=== PATIENT | male | born 1955 | race Caucasian/White ===

== ENCOUNTER → 2019-04-19 09:11 | Outpatient (CLI) | payer BC, SELFPAY ==
--- NOTE | 2019-04-19 09:22 | NVE_ITS ---
Venous Exam Indications: 729.81 Swelling of limb. 729.5 Pain in limb. IMPRESSIONS 1. There is no evidence of significant Reflux. 2. No evidence of deep or superficial vein thrombosis involving the right lower extremity History: Risk factors: Hypertension. Right lower extremity venous duplex evaluation. Doppler flow study including spectral analysis, color and velázquez scale imaging. Location: Vascular laboratory. Patient status: Outpatient. CRITICAL FINDINGS - Reported to: Aisha Campos office - 04/19/2019 - 09:45 am - Neg for DVT Tables: Venous flow and imaging: + +-------+ + Location Overall Flow properties + +-------+ + Right common femoral Patent Normal phasicity; spontaneous; normal augmentation; compressible + +-------+ + Right saphenofemoral junction Patent Compressible + +-------+ + Right profunda femoral Patent Compressible + +-------+ + Right femoral Patent Normal phasicity; spontaneous; normal augmentation; compressible + +-------+ + Right greater saphenous Patent Normal phasicity; spontaneous; normal augmentation; compressible + +-------+ + Right popliteal Patent Normal phasicity; spontaneous; normal augmentation; compressible + +-------+ + Right posterior tibial Patent Compressible + +-------+ + Right peroneal Patent Compressible + +-------+ + Right gastrocnemius Patent Compressible + +-------+ + Right soleal Patent Compressible + +-------+ + (Report amended ) Electronically signed by: Feliciano Barraza [id number]
== END ==
PROVIDERS: PCP Internal Medicine; Visit Provider Internal Medicine
DX: M79.661 Pain in right lower leg (principal); M79.89 Other specified soft tissue disorders
CPT/HCPCS: 93971

== ENCOUNTER → 2019-09-13 07:38 | Outpatient (CLI) | payer BC, SELFPAY ==
--- NOTE | 2019-09-13 07:42 | MR_ITS ---
PROCEDURE: MR LUMBAR SPINE WO CON CLINICAL INDICATION: LOW BACK PAIN Low back pain radiating into the right leg COMPARISON: No exams were available for comparison TECHNIQUE: Standard multiplanar multiecho sequences are performed without contrast. 3-D MIP and myelographic images are also rendered and reviewed FINDINGS: Normal alignment. The spinal cord ends at the L1 level. T11-T12: Mild degenerative disc disease. T12-L1: Minimal facet and ligamentum hypertrophic change on the right L1-L2: Unremarkable. L2-L3: Mild bulging disc along with moderate facet and ligamentum hypertrophy with mild bilateral lateral recess narrowing. L3-L4: Moderate facet ligamentum hypertrophy with mild bilateral lateral recess narrowing slightly greater on the right compared to left. L4-5: Moderate facet ligamentum hypertrophy with mild bilateral lateral recess narrowing and mild bilateral foraminal narrowing. L5-S1: Degenerate disc disease. 2 mm anterolisthesis L5 on S1. There is bulging disc at this level along with facet ligamentum hypertrophy. There does appear to be a pars defect on the right and possibly on the left at L5. There is moderate bilateral foraminal narrowing. 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 Please see above for detailed description at each level. Degenerative disc disease at L5-S1 with 2 mm anterolisthesis L5 on S1. There is bulging disc at this level along with facet ligamentum hypertrophy. There does appear to be a pars defect on the right and possibly on the left at L5. There is moderate bilateral foraminal narrowing No extruded herniated disc or canal stenosis. Dictated by: Feliciano Barraza MD 09/15/2019 04:57 Electronically signed by Feliciano Barraza MD in [place] 09/15/2019 04:57
== END ==
PROVIDERS: PCP Internal Medicine; Visit Provider Internal Medicine
DX: M54.5 Low back pain (principal)
CPT/HCPCS: 72148; 76376

== ENCOUNTER 2019-12-07 09:20 | Outpatient (CLI) | payer BC, SELFPAY ==
[2019-12-07 09:28] VITALS: BMI 35.6
[2019-12-07 09:45] VITALS: BP 136/67; PULSE 59; RESP 18; TEMP 36.4; O2SAT 96
[2019-12-07 09:51] LABS: Basophils % 0.3 % (0.1-2.0); Eosinophils % 0.2 % (0.1-12.0); Hematocrit 39.1 % (42.0-52.0); Hemoglobin 12.6 g/dL (14.1-18.0); Lymphocytes # 2.4 K/mm3 (0.7-4.5); Lymphocytes % 16.6 % (10-50); Mean Corpuscular HGB Conc 32.2 g/dL (31.8-35.4); Mean Corpuscular Hemoglobin 29.4 pg (27.0-31.2); Mean Corpuscular Volume 91.3 fl (80-94); Mean Platelet Volume 8.3 fl (7.4-10.4); Monocytes # 0.6 K/mm3 (0.1-1.0); Monocytes % 4.3 % (1.7-9.3); Neutrophils # 11.4 K/mm3 (1.8-7.8); Neutrophils % 78.6 % (37.0-80.0); Platelet Count 378 K/mm3 (142-424); Red Blood Count 4.28 M/mm3 (4.60-6.20); Red Cell Distribution Width 12.9 % (11.5-17.5); White Blood Count 14.5 K/mm3 (4.8-10.8)
[2019-12-07 10:00] LABS: Alanine Aminotransferase 44 U/L (12-78); Albumin Level 3.5 gm/dL (3.4-5.0); Albumin/Globulin Ratio 0.9 (1.1-1.8); Alkaline Phosphatase 61 U/L (46-116); Anion Gap 15.2 mEq/L (5-15); Aspartate Amino Transferase 30 U/L (15-37); Bilirubin,Total 0.7 mg/dL (0.2-1.0); Blood Urea Nitrogen 39 mg/dL (7-18); Calcium 9.1 mg/dL (8.5-10.1); Carbon Dioxide 26 mmol/L (21.0-32.0); Chloride 97 mmol/L (98-107); Creatinine Clearance Estimated 64 mL/min (50-200); Creatinine,Serum 1.68 mg/dL (0.70-1.30); Estimated Glomerular Filt Rate 41 ml/min (>60); GFR (African American) 50 ML/MIN (>60); Globulin 3.9 gm/dl (1.3-3.2); Glucose 144 mg/dL (74-106); Potassium 3.2 mmoL/L (3.5-5.1); Sodium 135 mmol/L (136-145); Total Protein,Serum 7.4 gm/dL (6.4-8.2)
[2019-12-07 10:15] VITALS: BP 125/73; PULSE 59; RESP 18
[2019-12-07 11:25] VITALS: BP 129/67; PULSE 64; RESP 18
[2019-12-07 12:35] VITALS: BP 138/66; PULSE 75; RESP 18
[2019-12-07 13:45] VITALS: BP 139/58; PULSE 78; RESP 20
== END 2019-12-07 13:50 | disposition home or self-care (01) ==
LOC: INF 09:22
PROVIDERS: PCP Internal Medicine; Visit Provider Internal Medicine
DX: K52.9 Noninfective gastroenteritis and colitis, unspecified (principal); E86.0 Dehydration
CPT/HCPCS: 80053; 85025; 96360; 96361

== ENCOUNTER → 2020-05-05 09:16 | Outpatient (CLI) | payer BC, SELFPAY ==
[2020-05-05 10:37] LABS: Hemoglobin A1C 6.8 % (4.0-6.0)
[2020-05-05 10:44] LABS: Coronavirus 19 IgG Antibody Negative (Negative)
[2020-05-05 10:45] LABS: Coronavirus 19 IgM Antibody Negative (Negative)
[2020-05-05 11:07] LABS: Alanine Aminotransferase 20 U/L (12-78); Albumin Level 4.3 g/dl (3.5-5.0); Albumin/Globulin Ratio 1.8 (1.1-1.8); Alkaline Phosphatase 46 U/L (38-126); Anion Gap 12.8 mEq/L (5-15); Aspartate Amino Transferase 21 U/L (17-59); Bilirubin,Total 0.9 mg/dl (0.2-1.3); Blood Urea Nitrogen 22 mg/dl (9-20); Calcium 9.2 mg/dl (8.4-10.2); Carbon Dioxide 32 mmol/L (22.0-30.0); Chloride 99 mmol/L (98-107); Chol/HDL Ratio 2.5 (1-3.5); Cholesterol 121 mg/dl (140-200); Estimated Glomerular Filt Rate 67 ml/min (>60); GFR (African American) 81 ML/MIN (>60); Globulin 2.4 g/dL (1.3-3.2); Glucose 113 mg/dl (74-100); HDL Cholesterol 48 mg/dl (40-60); Potassium 3.8 mmoL/L (3.5-5.1); Sodium 140 mmol/L (136-145); Total Protein,Serum 6.7 g/dl (6.3-8.2); Triglycerides 65 mg/dl (30-150); VLDL Cholesterol 13 mg/dL (0-40)
[2020-05-05 11:18] LABS: Direct LDL Cholesterol 87.52 mg/dL (100-129)
[2020-05-05 11:36] LABS: Prostate Specific Ag, Diagnost 1.32 ng/ml (0.0-4.0); Thyroid Stimulating Hormone 2.44 uIU/mL (0.465-4.68)
== END ==
PROVIDERS: Visit Provider Internal Medicine
DX: Z03.818 Encounter for observation for suspected exposure to other biological agents ruled out (principal); I10 Essential (primary) hypertension; E78.5 Hyperlipidemia, unspecified; E11.42 Type 2 diabetes mellitus with diabetic polyneuropathy; Z79.84 Long term (current) use of oral hypoglycemic drugs
CPT/HCPCS: 36415; 80053; 80061; 83036; 84153; 84443; 86328

== ENCOUNTER 2020-08-22 09:00 | Outpatient (RCR) | payer BC, SELFPAY | END 2020-08-22 10:03 | disposition home or self-care (01) | LOC: PT 09:00 | PROVIDERS: PCP Internal Medicine; Visit Provider Orthopaedic Surgery | DX: M25.561 Pain in right knee (principal) | CPT/HCPCS: 97010; 97014; 97016; 97110; 97140; 97163; 97164; G0283 ==

== ENCOUNTER → 2021-06-04 13:42 | Outpatient (CLI) | payer BC, SELFPAY | PROVIDERS: Visit Provider Internal Medicine | DX: H00.014 Hordeolum externum left upper eyelid (principal) | CPT/HCPCS: 87070; 87077; 87186 ==

== ENCOUNTER → 2021-11-19 14:55 | Outpatient (CLI) | payer BC, SELFPAY ==
[2021-11-19 15:30] LABS: Microalbumin < 6.000 mg/L (0-16.7)
[2021-11-19 15:38] LABS: Hemoglobin A1C 6.8 % (4.0-6.0)
[2021-11-19 15:52] LABS: Chloride 102 mmol/L (98-107); Potassium 5.2 mmoL/L (3.5-5.1); Sodium 138 mmol/L (136-145)
[2021-11-19 15:55] LABS: Alanine Aminotransferase 27 U/L (12-78); Albumin Level 4.2 g/dl (3.5-5.0); Albumin/Globulin Ratio 1.9 (1.1-1.8); Alkaline Phosphatase 42 U/L (38-126); Anion Gap 14.2 mEq/L (5-15); Aspartate Amino Transferase 28 U/L (17-59); Bilirubin,Total 0.4 mg/dl (0.2-1.3); Blood Urea Nitrogen 21 mg/dl (9-20); Carbon Dioxide 27 mmol/L (22.0-30.0); Cholesterol 124 mg/dl (140-200); Estimated Glomerular Filt Rate 67 ml/min (>60); GFR (African American) 81 ML/MIN (>60); Globulin 2.2 g/dL (1.3-3.2); Total Protein,Serum 6.4 g/dl (6.3-8.2); Triglycerides 110 mg/dl (30-150); VLDL Cholesterol 22 mg/dL (0-40)
[2021-11-19 15:56] LABS: Chol/HDL Ratio 3.4 (1-3.5); Glucose 118 mg/dl (74-100); HDL Cholesterol 37 mg/dl (40-60)
[2021-11-19 16:07] LABS: Direct LDL Cholesterol 74.77 mg/dL (100-129)
[2021-11-19 16:46] LABS: Prostate Specific Ag Screen 0.9 ng/ml (0.0-4.0)
== END ==
PROVIDERS: Visit Provider Internal Medicine
DX: E11.9 Type 2 diabetes mellitus without complications (principal); E78.5 Hyperlipidemia, unspecified; I10 Essential (primary) hypertension; N40.1 Benign prostatic hyperplasia with lower urinary tract symptoms; Z12.5 Encounter for screening for malignant neoplasm of prostate; Z79.84 Long term (current) use of oral hypoglycemic drugs
CPT/HCPCS: 80053; 80061; 82043; 83036; G0103

== ENCOUNTER → 2021-12-31 09:41 | Outpatient (POV) | payer BC, SELFPAY | PROVIDERS: Visit Provider Dermatology | DX: Z00.00 Encounter for general adult medical examination without abnormal findings (principal) ==

== ENCOUNTER 2022-01-23 09:20 | Emergency (ER) | payer BC, MEDICARE, SELFPAY ==
[2022-01-23 09:40] VITALS: BP 161/82; PULSE 69; RESP 19; TEMP 37; O2SAT 97; BMI 38.7
--- NOTE | 2022-01-23 09:47 | HMH.EDUTC ---
[facility] [place] Clinical Impression: Impacted ear wax Qualifiers: Laterality: bilateral Qualified Code(s): H61.23 - Impacted cerumen, bilateral Disposition: Home, Self-Care Condition on Discharge: Good Instructions: DI for Cerumen Impaction Additional Instructions: Follow up with Family Doctor if needed Return if needed Straight to ER if any life threatening symptoms Referrals: Saw Campos [Primary Care Provider] - As needed Time of Disposition: 10:12 Medical Decision Making - Jean Inquiry Pt receiving controlled substance: No Jean was queried for this patient: No Vital Signs: 01/23/22 09:40 Temperature 98.6 F Temperature Source Oral Pulse Rate [Right Radial] 69 Respiratory Rate 19 Blood Pressure [Right Arm] 161/82 H Blood Pressure Mean [Right Arm] 108 Blood Pressure Source [Right Arm] Automatic Cuff Blood Pressure Position [Right Arm] Sitting 02 Sat by Pulse Oximetry 97 Oxygen Delivery Method Room Air [facility] [place] - General Stated complaint: trouble hearing in lt ear Time Seen by Provider: 01/23/22 09:48 Mode of Arrival: Ambulatory Source of Information: Patient Limitations: No Limitations Description of Symptoms (Recalled from Triage Doc. by RN): Pt c/o fullness in his left ear x2 days HEENT Symptoms (Recalled from RN notes): Yes (Ear fullness) Resp Symptoms (Recalled from RN notes): No Skin Symptoms (Recalled from RN notes): No MS Symptoms (Recalled from RN notes): No Functional Status (Recalled from RN notes): n/a - History of Present Illness Provider Complaint: Patient states that he has been having trouble hearing out of his left ear and he wears ear plugs at work and sometimes his ears gets stopped up with dry skin and wax State that he noticed he couldnt hear out of his left ear and his right ear is getting bad too so he came in to get it checked and cleaned out if needed - Related Data Home Medications Medication Instructions Recorded Confirmed Amlodipine Besylate [Amlodipine 5 mg PO DAILY 12/07/19 01/14/20 10mg Tab] Aspirin [Aspir 81] 81 mg PO DAILY 12/07/19 01/14/20 Benazepril HCl 80 mg PO DAILY 12/07/19 01/14/20 Folic Acid 0.8 mg PO DAILY 12/07/19 01/14/20 Metformin HCl [Metformin HCl ER] 1,000 mg PO BID 12/07/19 01/14/20 Multivit-Min/FA/Lycopen/Lutein 1 each PO DAILY 12/07/19 01/14/20 [Centrum Silver Tablet] Pyridoxine HCl (Vitamin B6) 100 mg PO BID 12/07/19 01/14/20 [Vitamin B-6] Spironolactone [Spironolactone 25 mg PO DAILY 12/07/19 01/14/20 25mg Tablet] atenoloL [Atenolol 50mg Tab] 50 mg PO BID 12/07/19 01/14/20 hydroCHLOROthiazide [HCTZ 25mg 25 mg PO DAILY 12/07/19 01/14/20 tab] Allergies Allergy/AdvReac Type Severity Reaction Status Date / Time levofloxacin [From Levaquin] Allergy Unknown Unknown Verified 01/14/20 16:54 allergy reaction - Worker's Comp Is this a Worker's Comp case?: No [facility] History - Hepatitis A Screen Drug use history?: No High risk sexual behaviors?: No History of sexually transmitted infection?: No Currently employed?: No Childcare worker?: No Do you have indoor plumbing?: Yes Do you have electricity?: Yes Attestation statement:: This patient has been screened for Hepatitis A risk factors. I have reviewed the patient's past medical history: Yes Medical History: Reports:: Diabetes Mellitus Type 2, Heart Murmur, Hypertension Denies:: Diabetes Mellitus Type 1 Laterality Cases: Left: Carpal Tunnel Release Other Surgeries: Yes: Cancer Surgery (BASAL CELL CARCINOMA) - Social History Smoking Status: Never smoker Alcohol Intake: never Alcohol Intake Frequency:: holidays/special occasions only Occupational Status: employed Housing: house Household Members: spouse Family Hx:: Cancer, Hypertension ROS Obtained: Yes All systems reviewed & no additional complaints, Yes Systems reviewed as appropriate & no additional complaints - Constitutional Constitutional: Reports system reviewed and no additiona
[2022-01-23 10:20] VITALS: BP 161/82; PULSE 69; RESP 19; TEMP 37; O2SAT 97
== END 2022-01-23 10:24 | disposition home or self-care (01) ==
PROVIDERS: Emergency Provider Nurse Practitioner; PCP Internal Medicine
DX: H92.02 Otalgia, left ear (principal); H61.23 Impacted cerumen, bilateral; E11.9 Type 2 diabetes mellitus without complications; I10 Essential (primary) hypertension
CPT/HCPCS: 99202; G0463

== ENCOUNTER → 2022-02-11 09:19 | Outpatient (POV) | payer BC, MEDICARE, SELFPAY | PROVIDERS: Visit Provider Dermatology | DX: Z00.00 Encounter for general adult medical examination without abnormal findings (principal) ==

== ENCOUNTER → 2022-06-17 13:10 | Outpatient (CLI) | payer BC, MEDICARE, SELFPAY ==
[2022-06-17 17:37] LABS: Basophils # 0.1 K/mm3 (0-0.2); Basophils % 0.6 % (0.1-2.0); Eosinophils # 0.2 K/mm3 (0.0-0.4); Eosinophils % 2.5 % (0.1-12.0); Hemoglobin 12.4 g/dL (14.1-18.0); Lymphocytes # 3.2 K/mm3 (0.7-4.5); Lymphocytes % 41.3 % (10-50); Mean Corpuscular HGB Conc 31.9 g/dL (31.8-35.4); Mean Corpuscular Hemoglobin 30.2 pg (27.0-31.2); Mean Corpuscular Volume 94.7 fl (80-94); Mean Platelet Volume 8.6 fl (7.4-10.4); Monocytes # 0.4 K/mm3 (0.1-1.0); Monocytes % 4.8 % (1.7-9.3); Neutrophils # 3.9 K/mm3 (1.8-7.8); Neutrophils % 50.8 % (37.0-80.0); Platelet Count 309 K/mm3 (142-424); Red Blood Count 4.12 M/mm3 (4.60-6.20); White Blood Count 7.7 K/mm3 (4.8-10.8)
[2022-06-17 18:19] LABS: Alanine Aminotransferase 36 U/L (12-78); Albumin/Globulin Ratio 1.7 (1.1-1.8); Alkaline Phosphatase 60 U/L (38-126); Anion Gap 13.9 mEq/L (5-15); Aspartate Amino Transferase 33 U/L (17-59); Bilirubin,Total 0.2 mg/dl (0.2-1.3); Blood Urea Nitrogen 27 mg/dl (9-20); Calcium 8.6 mg/dl (8.4-10.2); Carbon Dioxide 24 mmol/L (22.0-30.0); Chloride 105 mmol/L (98-107); Cholesterol 96 mg/dl (140-200); Estimated Glomerular Filt Rate 60 ml/min (>60); GFR (African American) 73 ML/MIN (>60); Globulin 2.3 g/dL (1.3-3.2); Glucose 124 mg/dl (74-100); HDL Cholesterol 32 mg/dl (40-60); Potassium 4.9 mmoL/L (3.5-5.1); Sodium 138 mmol/L (136-145); Total Protein,Serum 6.3 g/dl (6.3-8.2); Triglycerides 143 mg/dl (30-150); VLDL Cholesterol 29 mg/dL (0-40)
[2022-06-17 18:30] LABS: Direct LDL Cholesterol 46.38 mg/dL (100-129)
[2022-06-18 09:23] LABS: Hemoglobin A1C 6.6 % (4.0-6.0)
== END ==
PROVIDERS: PCP Internal Medicine; Visit Provider Internal Medicine
DX: E11.42 Type 2 diabetes mellitus with diabetic polyneuropathy (principal); E78.5 Hyperlipidemia, unspecified; I10 Essential (primary) hypertension; K75.81 Nonalcoholic steatohepatitis (NASH); Z79.84 Long term (current) use of oral hypoglycemic drugs
CPT/HCPCS: 80053; 80061; 83036; 85025

== ENCOUNTER → 2022-07-01 09:50 | Outpatient (POV) | payer BC, MEDICARE, SELFPAY | PROVIDERS: Visit Provider Dermatology | DX: Z00.00 Encounter for general adult medical examination without abnormal findings (principal) ==

== ENCOUNTER → 2022-12-19 11:56 | Outpatient (CLI) | payer MEDICARE, SELFPAY ==
[2022-12-19 13:45] LABS: Basophils # 0.1 K/mm3 (0-0.2); Basophils % 0.7 % (0.1-2.0); Eosinophils # 0.2 K/mm3 (0.0-0.4); Eosinophils % 1.7 % (0.1-12.0); Hematocrit 38.7 % (42.0-52.0); Hemoglobin 12.4 g/dL (14.1-18.0); Lymphocytes # 4.1 K/mm3 (0.7-4.5); Lymphocytes % 47.7 % (10-50); Mean Corpuscular HGB Conc 32.1 g/dL (31.8-35.4); Mean Corpuscular Hemoglobin 30.8 pg (27.0-31.2); Mean Platelet Volume 9.1 fl (7.4-10.4); Monocytes # 0.4 K/mm3 (0.1-1.0); Monocytes % 4.7 % (1.7-9.3); Neutrophils # 3.9 K/mm3 (1.8-7.8); Neutrophils % 45.1 % (37.0-80.0); Platelet Count 335 K/mm3 (142-424); Red Blood Count 4.03 M/mm3 (4.60-6.20); Red Cell Distribution Width 13.4 % (11.5-17.5); White Blood Count 8.6 K/mm3 (4.8-10.8)
[2022-12-19 15:21] LABS: Alanine Aminotransferase 59 U/L (12-78); Albumin Level 4.3 g/dl (3.5-5.0); Alkaline Phosphatase 53 U/L (38-126); Anion Gap 14.2 mEq/L (5-15); Aspartate Amino Transferase 54 U/L (17-59); Bilirubin,Total 0.7 mg/dl (0.2-1.3); Blood Urea Nitrogen 23 mg/dl (9-20); Calcium 8.9 mg/dl (8.4-10.2); Carbon Dioxide 26 mmol/L (22.0-30.0); Chloride 105 mmol/L (98-107); Chol/HDL Ratio 3.5 (1-3.5); Cholesterol 90 mg/dl (140-200); Estimated Glomerular Filt Rate 60 ml/min (>60); GFR (African American) 73 ML/MIN (>60); Globulin 2.2 g/dL (1.3-3.2); Glucose 139 mg/dl (74-100); HDL Cholesterol 26 mg/dl (40-60); Potassium 5.2 mmoL/L (3.5-5.1); Sodium 140 mmol/L (136-145); Total Protein,Serum 6.5 g/dl (6.3-8.2); Triglycerides 110 mg/dl (30-150); VLDL Cholesterol 22 mg/dL (0-40)
[2022-12-19 15:32] LABS: Direct LDL Cholesterol 46.63 mg/dL (100-129)
[2022-12-19 15:53] LABS: Prostate Specific Ag Screen 1.1 ng/ml (0.0-4.0)
[2022-12-19 16:54] LABS: Hemoglobin A1C 7.8 % (4.0-6.0)
== END ==
PROVIDERS: PCP Internal Medicine; Visit Provider Internal Medicine
DX: E11.9 Type 2 diabetes mellitus without complications (principal); E78.5 Hyperlipidemia, unspecified; I87.2 Venous insufficiency (chronic) (peripheral); K75.81 Nonalcoholic steatohepatitis (NASH); N40.1 Benign prostatic hyperplasia with lower urinary tract symptoms; Z79.84 Long term (current) use of oral hypoglycemic drugs; Z12.5 Encounter for screening for malignant neoplasm of prostate
CPT/HCPCS: 80053; 80061; 83036; 85025; G0103

== ENCOUNTER → 2022-12-22 12:22 | Outpatient (CLI) | payer MEDICARE, SELFPAY ==
[2022-12-22 13:15] LABS: Creatinine,Urine Random 141 mg/dL (Not Estab.)
[2022-12-22 13:22] LABS: Microalbumin < 6.000 mg/L (0-16.7)
[2022-12-22 16:33] LABS: Iron 77 ug/dL (49-181)
[2022-12-22 16:42] LABS: Total Iron Binding Capacity 336 ug/dL (261-462)
[2022-12-22 17:25] LABS: Vitamin B12 691 pg/mL (239-931)
== END ==
PROVIDERS: PCP Internal Medicine; Visit Provider Internal Medicine
DX: E11.9 Type 2 diabetes mellitus without complications (principal); Z79.84 Long term (current) use of oral hypoglycemic drugs
CPT/HCPCS: 82043; 82570; 82607; 83540; 83550

== ENCOUNTER → 2023-06-29 14:21 | Outpatient (CLI) | payer MEDICARE, SELFPAY ==
[2023-06-29 18:27] LABS: Basophils # 0.1 K/mm3 (0-0.2); Basophils % 0.5 % (0.1-2.0); Eosinophils # 0.2 K/mm3 (0.0-0.4); Eosinophils % 2.1 % (0.1-12.0); Hematocrit 43.7 % (42.0-52.0); Hemoglobin 13.3 g/dL (14.1-18.0); Lymphocytes # 4.2 K/mm3 (0.7-4.5); Lymphocytes % 39.6 % (10-50); Mean Corpuscular HGB Conc 30.4 g/dL (31.8-35.4); Mean Corpuscular Hemoglobin 29.5 pg (27.0-31.2); Mean Corpuscular Volume 97.2 fl (80-94); Mean Platelet Volume 9.1 fl (7.4-10.4); Monocytes # 0.5 K/mm3 (0.1-1.0); Monocytes % 4.7 % (1.7-9.3); Neutrophils # 5.7 K/mm3 (1.8-7.8); Neutrophils % 53.1 % (37.0-80.0); Platelet Count 337 K/mm3 (142-424); Red Blood Count 4.49 M/mm3 (4.60-6.20); Red Cell Distribution Width 13.7 % (11.5-17.5); Reticulocyte % (Auto) 1.8 % (0.9-3.2); White Blood Count 10.7 K/mm3 (4.8-10.8)
[2023-06-29 18:41] LABS: Alanine Aminotransferase 47 U/L (12-78); Albumin Level 4.4 g/dl (3.5-5.0); Albumin/Globulin Ratio 1.8 (1.1-1.8); Alkaline Phosphatase 72 U/L (38-126); Anion Gap 16.2 mEq/L (5-15); Aspartate Amino Transferase 35 U/L (17-59); Bilirubin,Total 0.7 mg/dl (0.2-1.3); Blood Urea Nitrogen 27 mg/dl (9-20); Calcium 9.2 mg/dl (8.4-10.2); Carbon Dioxide 27 mmol/L (22.0-30.0); Chloride 101 mmol/L (98-107); Chol/HDL Ratio 4.6 (1-3.5); Cholesterol 105 mg/dl (140-200); Estimated Glomerular Filt Rate 46 ml/min (>60); GFR (African American) 56 ML/MIN (>60); Globulin 2.5 g/dL (1.3-3.2); Glucose 133 mg/dl (74-100); HDL Cholesterol 23 mg/dl (40-60); Potassium 5.2 mmoL/L (3.5-5.1); Sodium 139 mmol/L (136-145); Total Protein,Serum 6.9 g/dl (6.3-8.2); Triglycerides 137 mg/dl (30-150); VLDL Cholesterol 27 mg/dL (0-40)
[2023-06-29 18:50] LABS: Hemoglobin A1C 7.6 % (4.0-6.0)
[2023-06-29 18:52] LABS: Direct LDL Cholesterol 58.64 mg/dL (100-129)
== END ==
PROVIDERS: PCP Internal Medicine; Visit Provider Internal Medicine
DX: E11.42 Type 2 diabetes mellitus with diabetic polyneuropathy (principal); I10 Essential (primary) hypertension; I87.2 Venous insufficiency (chronic) (peripheral); D64.9 Anemia, unspecified; K75.81 Nonalcoholic steatohepatitis (NASH); Z79.84 Long term (current) use of oral hypoglycemic drugs
CPT/HCPCS: 80053; 80061; 83036; 85025; 85044

== ENCOUNTER 2024-02-08 13:21 | Outpatient (CLI) | payer MEDICARE, SELFPAY ==
[2024-02-08 15:41] LABS: Alanine Aminotransferase 47 U/L (12-78); Albumin Level 4.3 g/dl (3.5-5.0); Alkaline Phosphatase 67 U/L (38-126); Anion Gap 15.3 mEq/L (5-15); Aspartate Amino Transferase 37 U/L (17-59); Bilirubin,Total 0.8 mg/dl (0.2-1.3); Blood Urea Nitrogen 23 mg/dl (9-20); Calcium 9.1 mg/dl (8.4-10.2); Carbon Dioxide 23 mmol/L (22.0-30.0); Chloride 104 mmol/L (98-107); Chol/HDL Ratio 4.5 (1-3.5); Cholesterol 98 mg/dl (140-200); Estimated Glomerular Filt Rate 50 ml/min (>60); GFR (African American) 61 ML/MIN (>60); Globulin 2.1 g/dL (1.3-3.2); Glucose 146 mg/dl (74-100); HDL Cholesterol 22 mg/dl (40-60); Potassium 5.3 mmoL/L (3.5-5.1); Sodium 137 mmol/L (136-145); Total Protein,Serum 6.4 g/dl (6.3-8.2); Triglycerides 160 mg/dl (30-150); VLDL Cholesterol 32 mg/dL (0-40)
[2024-02-08 15:52] LABS: Direct LDL Cholesterol 58.63 mg/dL (100-129)
[2024-02-08 16:39] LABS: Hemoglobin A1C 8.7 % (4.0-6.0)
[2024-02-08 17:19] LABS: Creatinine,Urine Random 93 mg/dL (Not Estab.); Microalbumin < 6.000 mg/L (0-16.7)
== END 2024-02-08 23:59 ==
LOC: LAB.DROPOF 13:22
PROVIDERS: PCP Internal Medicine; Visit Provider Internal Medicine
DX: E11.42 Type 2 diabetes mellitus with diabetic polyneuropathy (principal); I10 Essential (primary) hypertension; Z12.5 Encounter for screening for malignant neoplasm of prostate; E78.5 Hyperlipidemia, unspecified; K75.81 Nonalcoholic steatohepatitis (NASH); I87.2 Venous insufficiency (chronic) (peripheral)
CPT/HCPCS: 80053; 80061; 82043; 82570; 83036; G0103

== ENCOUNTER 2024-07-12 14:51 | Outpatient (CLI) | payer MEDICARE, SELFPAY ==
[2024-07-12 13:24] LABS: Basophils # 0.1 K/mm3 (0-0.2); Basophils % 0.6 % (0.1-2.0); Eosinophils # 0.2 K/mm3 (0.0-0.4); Eosinophils % 1.7 % (0.1-12.0); Hematocrit 43.7 % (42.0-52.0); Hemoglobin 13.6 g/dL (14.1-18.0); Lymphocytes # 3.4 K/mm3 (0.7-4.5); Lymphocytes % 38.8 % (10-50); Mean Corpuscular HGB Conc 31.1 g/dL (31.8-35.4); Mean Corpuscular Hemoglobin 30.5 pg (27.0-31.2); Mean Corpuscular Volume 97.9 fl (80-94); Mean Platelet Volume 8.6 fl (7.4-10.4); Monocytes # 0.4 K/mm3 (0.1-1.0); Neutrophils # 4.7 K/mm3 (1.8-7.8); Neutrophils % 53.9 % (37.0-80.0); Platelet Count 323 K/mm3 (142-424); Red Blood Count 4.46 M/mm3 (4.60-6.20); Red Cell Distribution Width 14.2 % (11.5-17.5); White Blood Count 8.8 K/mm3 (4.8-10.8)
[2024-07-12 13:48] LABS: Hemoglobin A1C 7.8 % (4.0-6.0)
[2024-07-12 13:56] LABS: Alanine Aminotransferase 48 U/L (12-78); Albumin Level 4.2 g/dl (3.5-5.0); Albumin/Globulin Ratio 1.7 (1.1-1.8); Alkaline Phosphatase 62 U/L (38-126); Anion Gap 13.1 mEq/L (5-15); Aspartate Amino Transferase 38 U/L (17-59); Bilirubin,Total 0.7 mg/dl (0.2-1.3); Blood Urea Nitrogen 25 mg/dl (9-20); Calcium 9.2 mg/dl (8.4-10.2); Carbon Dioxide 25 mmol/L (22.0-30.0); Chloride 104 mmol/L (98-107); Chol/HDL Ratio 3.6 (1-3.5); Cholesterol 111 mg/dl (140-200); Estimated Glomerular Filt Rate 55 ml/min (>60); GFR (African American) 66 ML/MIN (>60); Globulin 2.5 g/dL (1.3-3.2); Glucose 147 mg/dl (74-100); HDL Cholesterol 31 mg/dl (40-60); Potassium 5.1 mmoL/L (3.5-5.1); Sodium 137 mmol/L (136-145); Total Protein,Serum 6.7 g/dl (6.3-8.2); Triglycerides 200 mg/dl (30-150); VLDL Cholesterol 40 mg/dL (0-40)
[2024-07-12 14:07] LABS: Direct LDL Cholesterol 51.15 mg/dL (100-129)
== END 2024-07-12 23:59 | disposition home or self-care (01) ==
LOC: LAB.DROPOF 14:52
PROVIDERS: PCP Internal Medicine; Visit Provider Internal Medicine
DX: E11.42 Type 2 diabetes mellitus with diabetic polyneuropathy (principal); I10 Essential (primary) hypertension; E78.5 Hyperlipidemia, unspecified; Z79.84 Long term (current) use of oral hypoglycemic drugs
CPT/HCPCS: 80053; 80061; 83036; 85025

== ENCOUNTER 2025-07-27 09:00 | Outpatient (CLI) | payer MEDICARE, OTHER, SELFPAY ==
--- OUTSIDE RECORDS SUMMARY | 2021-01-05 04:00 | XMS_ITS | Continuity of Care Document ---
Author Name [facility] Organization [facility] Care Team Providers Care Design Technician Name Role Phone [facility] Unavailable Unavailable Immunizations Combined list of available immunizations from the Department of Defense and Veterans Affairs facilities. Immunization Series Date Given Administered By Site Reaction Lot Number [id number] Code Drug Marketing Clerk Status Comments Source COVID-19 (PFIZER), MRNA, LNP-S, PF, 30 MCG/0.3 ML DOSE 2 2020 208 complet ed PFR; [id number]; 1 [place] [facility] [place] COVID-19 (PFIZER), MRNA, LNP-S, PF, 30 MCG/0.3 ML DOSE 1 2020 208 complet ed PFR; [id number]; 1 [place] [facility] [place]
[2025-07-27 14:07] LABS: Hematocrit 43.8 % (42.0-52.0); Hemoglobin 13.9 g/dL (14.1-18.0); Immature Granulocytes % 0.3 %; Mean Corpuscular HGB Conc 31.7 g/dL (31.8-35.4); Mean Corpuscular Hemoglobin 29.9 pg (27.0-31.2); Mean Corpuscular Volume 94.2 fl (80-94); Nucleated Red Blood Cells % 0 %; Platelet Count 282 K/mm3 (142-424); Red Blood Count 4.65 M/mm3 (4.60-6.20); Red Cell Distribution Width-SD 45.6 fL; White Blood Count 9.0 K/mm3 (4.8-10.8)
[2025-07-27 14:30] LABS: Albumin Level 4.7 g/dl (3.5-5.0); Chloride 102 mmol/L (98-107)
[2025-07-27 14:31] LABS: Potassium 4.9 mmoL/L (3.5-5.1); Sodium 140 mmol/L (136-145)
[2025-07-27 14:33] LABS: Alanine Aminotransferase 47 U/L (12-78); Albumin/Globulin Ratio 2.1 (1.1-1.8); Alkaline Phosphatase 63 U/L (38-126); Anion Gap 17.9 mEq/L (5-15); Aspartate Amino Transferase 52 U/L (17-59); Bilirubin,Total 1.1 mg/dl (0.2-1.3); Blood Urea Nitrogen 26 mg/dl (9-20); Carbon Dioxide 25 mmol/L (22.0-30.0); Creatinine,Serum 1.40 mg/dl (0.66-1.25); Estimated Glomerular Filt Rate 50 ml/min (>60); GFR (African American) 60 ML/MIN (>60); Globulin 2.2 g/dL (1.3-3.2); Total Protein,Serum 6.9 g/dl (6.3-8.2)
[2025-07-27 14:34] LABS: Calcium 9.3 mg/dl (8.4-10.2); Cholesterol 99 mg/dl (140-200); Glucose 145 mg/dl (74-100); HDL Cholesterol 27 mg/dl (40-60); Triglycerides 197 mg/dl (30-150)
[2025-07-27 18:49] LABS: Hemoglobin A1C 8.2 % (4.0-6.0)
--- OUTSIDE RECORDS SUMMARY | 2025-07-28 12:41 | XMS_ITS | Clinical Summary ---
[facility] Address [address] [place] [address] Care Team Providers Care Inventory Checker Name Role Phone Saw Campos MD Primary Care Provider [phone] Social History Tobacco Use Types Packs/Day Years Used Date Smoking Tobacco: Never Assessed Abuse Screen Answer Date Recorded Unsafe at Home or Work/School Not on file Feels Threatened by Someone? Not on file 10/2023 Does Anyone Keep You from Co ntacting Others or Doint Things Outside the Home? Not on file 09/10/2023 Physical Sign of Abuse Present Not on file 1 Housing Stability Answer Date Recorded Current Living Arrangements Not on file 08/30 Potentially Unsafe Housing Conditions Not on pineda e 09/10/2023 Family and Community Support Answer Gurjit e Recorded Help with Day-to-Day Activities Not on file 09/10/2023 Lonely or Isolated Not on file 09/10/2023 Employment Answer Date Recorded Do you want help finding or keeping work or a sebastian b? Not on file 09/10/2023 Disabilities Answer Date Recorded Concentrating, Remembering, or Making Decisions Difficulty Not on file 09/10/2023 Doing Errands Independently Difficulty Not on fi le 09/10/2023 Education Answer Date Recorded Help with school or training? Not on file Preferred Language Not on file 09/10/2023 Sex and Gender Information Value Date Recorded Sex Assigned at Not on file Legal Sex Male 9:32 AM EST Gender Identity Not on file Sexual Orientation Not on file Plan of Treatment Health Maintenance Due Date Last Done Comments TDAP/TD VACCINES (1 - Tdap) 1972 COLOGUARD 1998 COLON CANCER SCREENING 5 YEAR SIGMOIDOSCOPY 1998 COLONOSCOPY 1998 COL[address] CANCER SCREENING 1998 CT COLONOGRAPHY 1998 FECAL OCCULT BLOOD TEST 1998 FIT Testing (1 year) 1998 Pneumococcal Vaccine 50+ (1 of 1 - PCV) 2003 ZOSTER VACCINE (1 of 2) 2003 AAA SCREEN ONCE 2018 ANNUAL PHYSICAL 01/03/2019 HEPATITIS C SCREENING 01/03/2019 PT PLAN OF CARE 01/03/2019 COVID-19 Vaccine (2023- season) 2024 INFLUENZA VACCINE 08/30/2025 Insurance [facility] PPO Care Teams Inventory Checker Relationship Specialty Start Date End Date Saw Campos MD [address] [facility] [address] [place] [address] PCP - General Internal Medicine 01/03/19
== END 2025-07-27 23:59 | disposition home or self-care (01) ==
LOC: LAB.DROPOF 07-28 12:40
PROVIDERS: PCP Internal Medicine; Visit Provider Internal Medicine
DX: Z12.5 Encounter for screening for malignant neoplasm of prostate (principal); E78.5 Hyperlipidemia, unspecified; I10 Essential (primary) hypertension; E11.42 Type 2 diabetes mellitus with diabetic polyneuropathy; K75.81 Nonalcoholic steatohepatitis (NASH)
CPT/HCPCS: 80053; 80061; 82043; 82570; 83036; 85025; G0103